=== PATIENT | female | born 1950 ===

== ENCOUNTER 2020-08-07 08:31 | Outpatient (CLI) | payer OTHER | END 2020-08-07 08:42 | disposition home or self-care (01) | LOC: RAD 08:31 | DX: M94.0 Chondrocostal junction syndrome [Tietze] (principal) ==

== ENCOUNTER 2020-08-09 08:53 | Outpatient (CLI) | payer OTHER | END 2020-08-09 08:54 | disposition home or self-care (01) | LOC: NUCLEAR 08:53 | PROVIDERS: ATTEND Internal Medicine | DX: I11.9 Hypertensive heart disease without heart failure (principal) ==

== ENCOUNTER 2020-09-05 14:17 | Emergency (ER) | payer OTHER ==
[~2020-09-05] VITALS: Ht 160 cm; Wt 58.5 kg
[2020-09-05] MEDS ORDERED: SYNTHROID112 MCG (14:39)
[2020-09-05] MEDS ORDERED: LIPITOR20 MG (14:39)
[2020-09-05] MEDS ORDERED: ZITHROMAX500 MG PO (19:12)
== END 2020-09-05 19:25 | disposition home or self-care (01) ==
LOC: ER 14:17
DX: J06.9 Acute upper respiratory infection, unspecified (principal); B96.0 Mycoplasma pneumoniae [M. pneumoniae] as the cause of diseases classified elsewhere; R53.1 Weakness; R06.02 Shortness of breath

== ENCOUNTER 2020-10-26 09:49 | Emergency (ER) | payer OTHER ==
[~2020-10-26] VITALS: Ht 160 cm; Wt 59.0 kg
[~2020-10-26 09:49] MED LIST: LIPITOR20 MG; SYNTHROID112 MCG; ZITHROMAX500 MG PO
[2020-10-26] MEDS ORDERED: NEURONTIN300 MG (10:16)
[2020-10-26] MEDS ORDERED: LASIX20 MG (10:16)
[2020-10-26] MEDS ORDERED: SINGULAIR10 MG (10:16)
[2020-10-26] MEDS ORDERED: LIPITOR20 MG (10:16)
== END 2020-10-26 16:44 | disposition home or self-care (01) ==
LOC: ER 09:49 → CPU-OBS 12:35 → ER 16:44
DX: R07.89 Other chest pain (principal)

== ENCOUNTER 2020-11-13 07:56 | Outpatient (CLI) | payer OTHER ==
[~2020-11-13 07:56] MED LIST changes: +LASIX20 MG; +NEURONTIN300 MG; +SINGULAIR10 MG
== END 2020-11-13 08:15 | disposition home or self-care (01) ==
LOC: TOM 07:56
PROVIDERS: ATTEND Internal Medicine Gastroenterology
DX: K76.0 Fatty (change of) liver, not elsewhere classified (principal); R10.13 Epigastric pain
CPT/HCPCS: 74177; Q9965

== ENCOUNTER 2020-11-19 07:26 | Outpatient (CLI) | payer OTHER | END 2020-11-19 07:27 | disposition home or self-care (01) | LOC: NUCLEAR 07:26 | PROVIDERS: ATTEND Internal Medicine Cardiovascular Disease | DX: I34.0 Nonrheumatic mitral (valve) insufficiency (principal) ==